=== PATIENT | female | born 1965 | race Caucasian/White ===

== ENCOUNTER 2023-07-06 15:32 | Emergency (ER) | payer OTHER, SELFPAY ==
[2023-07-06 15:34] VITALS: BP 161/81
--- NOTE | 2023-07-06 15:58 | ED.GENMED ---
History of Present Illness
General
Chief Complaint: Prescription Refill
Source: patient
Exam Limitations: none
Time Seen by Provider: 07/06/23 15:42
Nursing documentation reviewed up to this point in time: agreed with
Travel History
Have you had any contact with someone who has COVID-19?: No
Do you have any symptoms of coronavirus? Fever > 100 degrees, chills, cough, shortness of breath, sore throat, loss of taste or smell, muscle aches, or headache?: No
History of Present Illness
History of Present Illness:
58-year-old female with past medical history of diabetes, bipolar, depression, hyperlipidemia presenting to the emergency department today with concerns of symptoms secondary to menopause. She was previously prescribed estrogen and progesterone but
had to switch doctors due to insurance change but is unable to follow-up until next week. She is seeking to have her medications refilled. Denies any significant acute symptoms at this time.
Past History
Past History
ED Past Medical History: GERD, Hypercholesterolemia, IDDM and Psychiatric (Bipolar disorder, depression)
ED Past Surgical History: Appendectomy, Cholecystectomy and Orthopedic
Social History
Tobacco: Smoker
Alcohol: None
Drug: None
Personal:
Living: with family
Review of Systems
Review of Systems
Allergies reviewed?: Yes
All Other Systems: ROS reviewed and negative except as documented in HPI and ROS
Phy Exam
Physical Exam
Physical Exam:
GENERAL: Alert , in no apparent distress
EYE: pupils equal and reactive
NECK: Supple, no significant adenopathy.
ENT: o/p clr, mmm.
CARDIAC: Regular rate and rhythm .
LUNGS: Clear breath sounds bilaterally, no acute respiratory distress, no wheezes/rales/rhonchi
ABDOMEN: Soft, without focal tenderness, no r/g, no cvat
NEUROLOGICAL: Alert and oriented, no focal neuro deficits
SKIN: Warm and dry, skin intact.
MUSCULOSKELETAL: No edema, well perfused.
PSYCH: Normal and appropriate interaction.
Course
Vital Signs
Initial and Last Documented VS:
Initial Vital Signs
Temp Pulse Resp BP Pulse Ox
98.9 F 96 18 161/81 98
07/06/23 15:34 07/06/23 15:34 07/06/23 15:34 07/06/23 15:34 07/06/23 15:34
Last Documented Vital Signs
Temp Pulse Resp BP Pulse Ox
98.9 F 96 18 161/81 98
07/06/23 15:34 07/06/23 15:34 07/06/23 15:34 07/06/23 15:34 07/06/23 15:34
MDM/Problems Addressed
MDM/Problems Addressed:
58-year-old female presenting to the emergency department today seeking prescription refill. Denies significant symptoms but has been treated with estrogen and progesterone for menopause for multiple months by outpatient doctor who believes she
still needs the treatment however is unable to see her at this point due to insurance change. She plans to follow-up in the next week or 2 has run out of the medication recently. Patient generally looks well vital signs are normal patient was
written for her prescribed indications and will follow-up closely.
*Critical Care Note
Total Time (30-74mins, 75-104mins- exclusive of procedures): Not Applicable
ED Attending Note
-
Portions of this chart may have been created with voice recognition software.� Occasional wrong word or��sound alike� substitutions may have occurred due to the inherent limitations of voice recognition software.
Discharge Plan
Departure
Patient Disposition: Home (Routine Discharge)
Date of Disposition: 07/06/23
Time of Disposition: 15:59
Patient with high blood pressure during this ER visit?: No
Condition: Good
Covid-19: Not Applicable
Discharge Problem:
Prescription refill
Prescriptions:
New
progesterone micronized 100 mg capsule
100 mg PO HS 14 Days Qty: 14 0RF
estradiol 0.075 mg/24 hr patch semiweekly
1 patch transdermal WEEKLY Qty: 8 0RF
No Action
trazodone 150 mg Tablet
300 mg PO HS
progesterone micronized 100 mg Capsule
100 mg PO DAILY
omeprazole 20 mg Tablet,Delayed Release (Dr/Ec)
20 mg PO DAILY
acetaminophen [Tylenol] 325 mg Tablet
500 mg PO BIDPRN PRN (Reason: pain)
estradiol 0.075 mg/24 hr Patch Weekly
1 patch TRANSDERMAL QWEEK
insulin aspart U-100 [Novolog FlexPen U-100 Insulin] 100 unit/mL (3 mL) Insulin Pen
1 sliding scale dose SC DIRECTED
insulin glargine [Lantus Solostar U-100 Insulin] 100 unit/mL (3 mL) Insulin Pen
20 unit SC HS
aspirin 325 mg Tablet
325 mg PO DAILY Qty: 27 0RF
Rx Instructions:
First Dose on December 31, 2022
docusate sodium 100 mg Capsule
100 mg PO BID Qty: 60 1RF
pantoprazole 40 mg Tablet,Delayed Release (Dr/Ec)
40 mg PO DAILY Qty: 14 0RF
sennosides [Senna Laxative] 8.6 mg Tablet
17.2 mg PO HS Qty: 30 0RF
methylprednisolone [Medrol (Mario)] 4 mg tablets,dose pack
4 mg PO DAILY Qty: 21 0RF
Rx Instructions:
per package directions
Referrals:
Rajwinder John DO [Active] - Follow up in 1 week
Milagro Odell MD [Non-Admitting Privileges] - Follow up in 1 week
Activity Restrictions/Additional Instructions:
You came to the emergency department for prescription refill. Please follow closely with gynecology for further management. Return to the emergency department for any worsening, new or concerning symptoms.
== END 2023-07-06 16:18 | disposition home or self-care (01) ==
LOC: EMR 15:32
PROVIDERS: EMERGENCY PHYSICIAN Emergency Medicine; FAMILY PHYSICIAN Registered Nurse
DX: Z76.0 Encounter for issue of repeat prescription (principal); N95.1 Menopausal and female climacteric states; E11.9 Type 2 diabetes mellitus without complications; E78.00 Pure hypercholesterolemia, unspecified; K21.9 Gastro-esophageal reflux disease without esophagitis; F32.A Depression, unspecified; F31.9 Bipolar disorder, unspecified; F17.200 Nicotine dependence, unspecified, uncomplicated; Z90.49 Acquired absence of other specified parts of digestive tract; Z88.8 Allergy status to other drugs, medicaments and biological substances; Z91.041 Radiographic dye allergy status; Z79.82 Long term (current) use of aspirin
CPT/HCPCS: 99281

== ENCOUNTER 2024-10-08 13:07 | Emergency (ER) | payer OTHER, SELFPAY ==
[2024-10-08 13:14] VITALS: BP 157/79
--- NOTE | 2024-10-08 13:53 | ED.MUSCINJ ---
HPI-Injury
General
Chief Complaint: Musculo-Skeletal Complaint
Source: patient
Exam Limitations: none
Time Seen by Provider: 10/08/24 13:44
Nursing documentation reviewed up to this point in time: agreed with
History of Present Illness-Injury
Initial Injury comments:
59-year-old female states 2 weeks ago she stumbled getting out of bed and as she fell she struck the ulnar aspect of her wrist on the arm of the chair. She has been using the arm as usual but with pain. She watches 2 grandchildren 3 times a week.
The wrist has been getting more sore and swollen.
Patient also complaining of muffled sound in right ear.
Past History
Past History
ED Past Medical History: GERD, Hypercholesterolemia, IDDM and Psychiatric (Bipolar disorder, depression)
ED Past Surgical History: Appendectomy, Cholecystectomy and Orthopedic
Social History
Tobacco: Smoker
Alcohol: None
Drug: None
Personal:
Living: with family
Review of Systems
Review of Systems
Allergies reviewed?: Yes
All Other Systems: ROS reviewed and negative except as documented in HPI and ROS
EENT: Reports other (Muffled sound right ear)
Musculoskeletal: Reports other (Pain and swelling left wrist)
Neurological: Denies weakness or numbness
Musculoskeletal Injury Exam
Musculoskeletal Injury Exam
Left wrist :
Pain with Movement?: Moderate
Tender to palpation?: Moderate (Over carpal bones and over the ulnar aspect of the wrist)
Soft tissue swelling?: Mild
External deformity and angulation?: None
Contusion?: Moderate
Joint instability?: No
Malalignment/deformity?: No
Range of motion: Limited (Mildly)
Distal skin color and temperature: normal-warm & good color
Capillary Refill: normal
Normal distal neurovascular exam?: Yes
Phy Exam
Physical Exam
Physical Exam:
PHYSICAL EXAMINATION:
General: no apparent distress, not acutely ill
Neuro: alert and oriented.
Psychiatric: well kept. interactive and cooperative
ENT: Left TM normal, right TM retracted and dry, no redness or drainage. No pain with pulling on the ear
Musculoskeletal: Moves with ease
Skin: Warm, pink.
Injury Course
Orders/Labs/Results
Orders:
Orders
10/08/24 13:17
Wrist, Left 3 Views CR [CR Wrist - Left Min 3 Views] Urgent
Comment:
Reason For Exam: fall 2 weeks ago
10/08/24 13:53
Volar Left-Treatment ONCE
Procedures
Splint Check
Splint checked by provider?: Yes
Circulation/Movement/Sensation post splint application: brisk cap refill and full sensation
Splinting/Sling Placement
left volar:
Procedure completed by: [employer]
Pre-splint extermity exam: good alignment
Type of splint: rashawn wrap and volar
Splint material: fiberglass
Normal distal neurovascular exam?: Yes
MDM/Problems Addressed
Differential Diagnosis Includes:
Fracture versus contusion
MDM/Problems Addressed:
59-year-old female states 2 weeks ago she stumbled getting out of bed and as she fell she struck the ulnar aspect of her wrist on the arm of the chair. She has been using the arm as usual but with pain. She watches 2 grandchildren 3 times a week.
The wrist has been getting more sore and swollen.
Left wrist x-ray radiology report read: IMPRESSION:
1. Acute nondisplaced transverse extra-articular fracture of the distal left radial metaphysis.
2. 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
3. Moderate soft tissue swelling in the ulnar side of the left wrist.
Volar splint applied. Referred to orthopedics.
Right TM retracted and dry, may be from seasonal allergies, recommend antihistamine for a week then ENT follow-up with no improvement
*Critical Care Note
Total Time (30-74mins, 75-104mins- exclusive of procedures): Not Applicable
ED Attending Note
-
Portions of this chart may have been created with voice recognition software.� Occasional wrong word or��sound alike� substitutions may have occurred due to the inherent limitations of voice recognition software.
Discharge Plan
Departure
Patient Disposition: Home (Routine Discharge)
Date of Disposition: 10/08/24
Time of Disposition: 13:59
Patient with high blood pressure during this ER visit?: No
Condition: Good
Discharge Problem:
Right ear pain, Fracture of left wrist
Instructions: Seasonal Allergies ED, Wrist Fracture
Prescriptions:
No Action
trazodone 150 mg Tablet
300 mg PO HS
progesterone micronized 100 mg Capsule
100 mg PO DAILY
omeprazole 20 mg Tablet,Delayed Release (Dr/Ec)
20 mg PO DAILY
acetaminophen [Tylenol] 325 mg Tablet
500 mg PO BIDPRN PRN (Reason: pain)
estradiol 0.075 mg/24 hr Patch Weekly
1 patch TRANSDERMAL QWEEK
insulin aspart U-100 [Novolog FlexPen U-100 Insulin] 100 unit/mL (3 mL) Insulin Pen
1 sliding scale dose SC DIRECTED
insulin glargine [Lantus Solostar U-100 Insulin] 100 unit/mL (3 mL) Insulin Pen
20 unit SC HS
aspirin 325 mg Tablet
325 mg PO DAILY Qty: 27 0RF
Rx Instructions:
First Dose on December 31, 2022
docusate sodium 100 mg Capsule
100 mg PO BID Qty: 60 1RF
pantoprazole 40 mg Tablet,Delayed Release (Dr/Ec)
40 mg PO DAILY Qty: 14 0RF
sennosides [Senna Laxative] 8.6 mg Tablet
17.2 mg PO HS Qty: 30 0RF
methylprednisolone [Medrol (Mario)] 4 mg tablets,dose pack
4 mg PO DAILY Qty: 21 0RF
Rx Instructions:
per package directions
progesterone micronized 100 mg capsule
100 mg PO HS 14 Days Qty: 14 0RF
estradiol 0.075 mg/24 hr patch semiweekly
1 patch transdermal WEEKLY Qty: 8 0RF
Referrals:
Marcella Washington MD [Family Provider] -
Tam Vega MD [Active] - Call in 1-3 days for appt
Timbo Song MD [Active] - As needed
Activity Restrictions/Additional Instructions:
As we discussed, for your ear, try an antihistamine for a week such as Claritin or Zyrtec as it may be allergy related.
For your wrist, call Dr. Vega's office tomorrow morning and make next available appointment. Keep the splint on until you see him.
Interventions
Interventions:
*Risk Screen - Suicide Last Done: 10/08/24 13:17
*General Assessment Last Done: 10/08/24 13:17
*Neglect/Abuse Screening Last Done: 10/08/24 13:17
*ED COVID-19 Vaccine History Last Done: 10/08/24 13:17
Discharge Date and Time
Print Language: POLISH
== END 2024-10-08 15:38 | disposition home or self-care (01) ==
LOC: EMR 13:07
PROVIDERS: EMERGENCY PHYSICIAN Emergency Medicine; FAMILY PHYSICIAN Internal Medicine
DX: S52.552A Other extraarticular fracture of lower end of left radius, initial encounter for closed fracture (principal); W06.XXXA Fall from bed, initial encounter; H92.01 Otalgia, right ear; F17.200 Nicotine dependence, unspecified, uncomplicated
CPT/HCPCS: 99283; 29125; 73110